=== PATIENT | male | born 1960 | race African-American/Black ===

== ENCOUNTER 2016-12-19 12:33 | Observation (INO) | payer MEDICAID, OTHER ==
[~2016-12-19] VITALS: Ht 190.5 cm; Wt 105.0 kg
[~2016-12-19 12:33] MED LIST: ALLE10TA5 PO; ASPI81TA82 PO; FISH100020 PO; GARL500C5 PO; GLIP10TA6 PO; HUMSS SQ; JANU50TA PO; LIPI10TA PO; LISI-363 PO; METF500 PO; ZANT150T2 PO
[2016-12-19 12:37] VITALS: BP 186/118; PULSE 82; RESP 20; TEMP 99; O2SAT 99
[2016-12-19 12:43] VITALS: BP 176/101; PULSE 84; RESP 21; TEMP 98.3; O2SAT 100
[2016-12-19 12:50] VITALS: BP_SYST 176; BP_SYST 186; BP_DIAS 101; BP_DIAS 118; PULSE 84; RESP 18; TEMP 98.3; O2SAT 100
[2016-12-19] MEDS ORDERED: METF1000 PO (12:58)
[2016-12-19] MEDS ORDERED: ATOR10TA15 PO (12:58)
[2016-12-19] MEDS ORDERED: LISI-515 PO (12:58)
[2016-12-19] MEDS ORDERED: LORA-520 (12:58)
[2016-12-19] MEDS ORDERED: GARL580C PO (12:58)
[2016-12-19] MEDS ORDERED: ASPI-110 PO (12:58)
[2016-12-19] MEDS ORDERED: FISH1000 PO (12:58)
[2016-12-19] MEDS ORDERED: ZANT150T2 PO (12:58)
[2016-12-19] MEDS ORDERED: TRAD5TAB PO (12:58)
[2016-12-19] MEDS ORDERED: GLIP10TA6 PO (12:58)
[2016-12-19] MEDS ORDERED: INSU1INJ13 SQ (12:58)
[2016-12-19] MEDS ORDERED: SODIUM CHLORIDE 0.9% FLUSH 10 ML FLUSH IVF PRN (13:00)
--- NOTE | 2016-12-19 13:02 | PD ---
HPI Chief Complaint: Chest Pain Time Seen by Provider: 12:53 Travel History International Travel<30 days: No Contact w/Intl Traveler<30days: No Traveled to known affect area: No History of Present Illness HPI 56yo M with PMH of HTN, DM presents to the ED with c/o chest pressure in left chest since last night. States it is intermittent, nonradiating and lasts seconds at a time. Denies any associated nausea, vomiting, diaphoresis, sob, fever, cough, abdominal pain, focal weakness or numbness. Denies any history of LA. Denies any previous chest pain or work up. Does not have a endband sizer. Took aspirin 81mg PO today. PFSH Past Medical History Hx Anticoagulant Therapy: Yes Asthma: Yes Cancer: No Cardiovascular Problems: Yes High Cholesterol: Yes Diabetes: Yes Patient Takes Glucophage: Yes Endocrine: Yes Gastrointestinal Disorders: Yes (GERD) Genitourinary: No Hepatitis: No Hiatal Hernia: No Hypertension: Yes Immune Disorder: No Musculoskeletal: No Neurologic: No Psychiatric: No Respiratory: Yes (ASTHMA RESOLVED) Thyroid Disease: No Tetanus Vaccination: Unknown Past Surgical History AICD: No Joint Replacement: No Pacemaker: No Thoracic Surgery: Yes (lipoma) Social History Alcohol Use: No Tobacco Use: No Substance Use: No Allergies-Medications (Allergen,Severity, Reaction): Coded Allergies: No Known Allergies (Verified , 12/19/16) Reported Meds & Prescriptions Reported Meds & Active Scripts Active Reported Zantac (Ranitidine HCl) 150 Mg Tab 150 Mg PO DAILY Allergy (Loratadine) 10 Mg Tab Tradjenta (Linagliptin) 5 Mg Tab 5 Mg PO DAILY Metformin (Metformin HCl) 1,000 Mg Tab 1,000 Mg PO BID With a meal Lisinopril 20 Mg Tab 20 Mg PO DAILY Glipizide 10 Mg Tab 10 Mg PO BID Take 30 minutes before a meal Fish Oil ([place]-3 Fatty Acids) 1,000 Mg Cap 1 Cap PO DAILY Garlic 580 Mg Capsule 1,000 Mg PO DAILY Atorvastatin (Atorvastatin Calcium) 10 Mg Tab 5 Mg PO HS Aspirin 81 (Aspirin) 81 Mg Tabdr 81 Mg PO DAILY Tresiba Flextouch Pen Inj (Insulin Degludec Inj) 600 unit/3 ML Pen 12 Units SQ HS Review of Systems Except as stated in HPI: all other systems reviewed are Neg Physical Exam Narrative GENERAL: 56yo M not in distress. SKIN: Focused skin assessment warm/dry. HEAD: Atraumatic. Normocephalic. CARDIOVASCULAR: Regular rate and rhythm. No murmur appreciated. RESPIRATORY: No accessory muscle use. Clear to auscultation. Breath sounds equal bilaterally. GASTROINTESTINAL: Abdomen soft, non-tender, nondistended. No rebound tenderness or guarding. MUSCULOSKELETAL: No obvious deformities. No clubbing. No cyanosis. No edema. NEUROLOGICAL: Awake and alert. No obvious cranial nerve deficits. Motor grossly within normal limits. Normal speech. PSYCHIATRIC: Appropriate mood and affect; insight and judgment normal. Data Data Last Documented VS Vital Signs Date Time Temp Pulse Resp B/P Pulse Ox O2 Delivery O2 Flow Rate FiO2 12/19/16 12:50 186/118 176/101 12/19/16 12:50 100 Room Air 12/19/16 12:50 98.3 84 18 Orders Basic Metabolic Panel (Bmp) (12/19/16 12:58) Complete Blood Count With Diff (12/19/16 12:58) Magnesium (Mg) (12/19/16 12:58) Prothrombin Time / Inr (Pt) (12/19/16 12:58) Act Partial Throm Time (Ptt) (12/19/16 12:58) Troponin I (12/19/16 12:58) Chest, Single Ap (12/19/16 12:58) Ecg Monitoring (12/19/16 12:58) Bilateral Bp Monitoring (12/19/16 12:58) Iv Access Insert/Monitor (12/19/16 12:58) Oximetry (12/19/16 12:58) Oxygen Administration (12/19/16 12:58) Sodium Chloride 0.9% Flush (Ns Flush) (12/19/16 13:00) Nitroglycerin Sl (Nitrostat Sl) (12/19/16 14:00) Aspirin Chew (Aspirin Chew) (12/19/16 14:00) Admit Order (Ed Use Only) (12/19/16 15:20) Labs Laboratory Tests Test 12/19/16 13:05 White Blood Count 6.7 TH/MM3 Red Blood Count 5.25 MIL/MM3 Hemoglobin 14.3 GM/DL Hematocrit 42.9 % Mean Corpuscular Volume 81.7 FL Mean Corpuscular Hemoglobin 27.3 PG Mean Corpuscular Hemoglobin 33.4 % Concent Red Cell Distribution Width 14.1 % Platelet Count 232 TH/MM3 Mean Platelet Volume 9.8 FL Neutrophils (%) (Auto) 63.9 % Lymphocytes (%) (Auto) 25.2 % Monocytes (%) (Auto) 7.3 % Eosinophils (%) (Auto) 2.5 % Basophils (%) (Auto) 1.1 % Neutrophils # (Auto) 4.3 TH/MM3 Lymphocytes # (Auto) 1.7 TH/MM3 Monocytes # (Auto) 0.5 TH/MM3 Eosinophils # (Auto) 0.2 TH/MM3 Basophils # (Auto) 0.1 TH/MM3 CBC Comment DIFF FINAL Differential Comment Prothrombin Time 10.4 SEC Prothromb Time International 0.9 RATIO Ratio Activated Partial 28.9 SEC Thromboplast Time Sodium Level 136 MEQ/L Potassium Level 4.2 MEQ/L Chloride Level 103 MEQ/L Carbon Dioxide Level 26.6 MEQ/L Anion Gap 6 MEQ/L Blood Urea Nitrogen 13 MG/DL Creatinine 1.16 MG/DL Estimat Glomerular Filtration 80 ML/MIN Rate Random Glucose 164 MG/DL Calcium Level 8.9 MG/DL Magnesium Level 2.2 MG/DL Troponin I LESS THAN 0.02 NG/ML MDM Medical Decision Making Medical Screen Exam Complete: Yes Emergency Medical Condition: Yes Interpretation(s) EKG: NSR 74bpm. Normal axis. No ST segment elevation or depression. Differential Diagnosis ACS vs. pneumonia vs. musculoskeletal pain vs. GERD Narrative Course 56yo M with pressure like chest pain since last night, lasting only seconds at a time. Pt was walking when he first had the pain but it is not worst with exertion. Labs reviewed, no leukocytosis. Troponin negative. Glucose mildly elevated at 164. CXR showed no acute cardiopulmonary disease. Pt took aspirin 81mg at home so gave him another 81mg PO. Sublingual nitro ordered PRN chest pain. Labs reviewed, no leukocytosis. Troponin negative. CXR showed no acute cardiopulmonary disease. Pt has never had a previous cardiac work up. Will admit to chest pain center for serial EKG and cardiac enzyme. BP is now 157/77. Pt was initially admitted to chest pain center. However, pt then states he is not able to wait and needs to go. States his chest pain had resolved. AMA: The risks of leaving against medical advice without further evaluation treatment were discussed with the patient. These risks include cardiac dysfunction, cardiac dysrhythmia, possible heart attack, possible stroke or . The patient indicated understanding of these risks and appeared to have the capacity to make this decision. Diagnosis Primary Impression: Chest pain Qualified Code: R07.9 - Chest pain, unspecified type Patient Instructions: General Instructions Departure Forms: Tests/Procedures Additional Instructions: Please follow up with your PMD or return to the ED if you change your mind. Med/Other Pt SpecificInfo: No Change to Meds Disposition: 07 AGAINST MEDICAL ADVICE Condition: Stable Gwendolyn Claire DO Dec 19, 2016 13:02
[2016-12-19 13:12] LABS: AUTOMATED NEUTROPHIL # 4.3 TH/MM3 (1.8-7.7); BASOPHIL # 0.1 TH/MM3 (0-0.2); BASOPHIL % 1.1 % (0.0-2.0); EOSINOPHIL # 0.2 TH/MM3 (0-0.4); EOSINOPHIL % 2.5 % (0.0-4.0); HEMATOCRIT 42.9 % (39.0-51.0); HEMO FLAGS DIFF FINAL; LYMPH % 25.2 % (9.0-44.0); LYMPHOCYTE # 1.7 TH/MM3 (1.0-4.8); MEAN CELL VOLUME 81.7 FL (80.0-100.0); MEAN CORPUSCULAR HEMOGLOBIN 27.3 PG (27.0-34.0); MEAN CORPUSCULAR HGB CONC 33.4 % (32.0-36.0); MONO % 7.3 % (0.0-8.0); NEUT % 63.9 % (16.0-70.0); PLATELET COUNT 232 TH/MM3 (150-450); RED BLOOD COUNT 5.25 MIL/MM3 (4.50-5.90); RED CELL DISTRIBUTION WIDTH 14.1 % (11.6-17.2); WHITE BLOOD COUNT 6.7 TH/MM3 (4.0-11.0)
[2016-12-19 13:22] LABS: APTT (PATIENT) 28.9 SEC (24.3-30.1); INTERNATIONAL NORMALIZED RATIO 0.9 RATIO; PROTHROMBIN TIME - PATIENT 10.4 SEC (9.8-11.6)
[2016-12-19 13:39] LABS: ANION GAP 6 MEQ/L (5-15); BICARBONATE 26.6 MEQ/L (21.0-32.0); BLOOD UREA NITROGEN 13 MG/DL (7-18); CHLORIDE 103 MEQ/L (98-107); GLOMERULAR FILTRATION RATE 80 ML/MIN (>89); MAGNESIUM 2.2 MG/DL (1.5-2.5); POTASSIUM 4.2 MEQ/L (3.5-5.1); SODIUM (NA) 136 MEQ/L (136-145)
--- NOTE | 2016-12-19 13:43 | RADRPT ---
EXAM DATE/TIME: 12/19/2016 13:08 [facility] COMPARISON: CHEST PA & LAT, November 28, 2014, 21:20. INDICATIONS : Short of breath. MEDICAL HISTORY : Diabetes mellitus type II. Bronchitis. Asthma. SURGICAL HISTORY : None. ENCOUNTER: Initial ACUITY: 1 day PAIN SCORE: 0/10 LOCATION: Bilateral chest FINDINGS: The lungs are clear without infiltrate, nodule, or mass. There is no appreciable pleural effusion fo r technique. Heart and mediastinum are unremarkable. CONCLUSION: No acute cardiopulmonary disease. Juan Yin MD on December 19, 2016 at 13:39 Board Certified Radiologist. This report was verified electronically.
[2016-12-19] MEDS ORDERED: NITROGLYCERIN 0.4 MG SL 25 TABS/BTL SL PRN (14:00)
[2016-12-19] MEDS ORDERED: ASPIRIN 81 MG CHEW TAB CHEW ONE (14:00)
[2016-12-19 16:44] VITALS: BP 140/70
--- NOTE | 2016-12-20 17:19 | EKG ---
Date Performed: 12/19/2016 Time Performed: 12:46:40 PTAGE: 56 years EKG: Sinus rhythm NORMAL ECG INTERPRETATION BASED ON A DEFAULT AGE OF 40 YEARS PREVIOUS TRACING : 11/28/2014 21.45 Since previous tracing, no significant change noted DOCTOR: Marcell Hubbard Interpretating Date/Time 12/20/2016 17:17:21
== END 2016-12-19 16:49 | disposition left against medical advice (07) ==
LOC: NEPE 12:33 → NEDA 15:22
PROVIDERS: ADMIT Internal Medicine Interventional Cardiology; ATTEND Internal Medicine Interventional Cardiology
DX: R07.89 Other chest pain (principal); R06.02 Shortness of breath; I10 Essential (primary) hypertension; E78.00 Pure hypercholesterolemia, unspecified; E11.9 Type 2 diabetes mellitus without complications; J45.909 Unspecified asthma, uncomplicated; K21.9 Gastro-esophageal reflux disease without esophagitis; Z79.899 Other long term (current) drug therapy; Z79.82 Long term (current) use of aspirin; Z79.84 Long term (current) use of oral hypoglycemic drugs; Z53.21 Procedure and treatment not carried out due to patient leaving prior to being seen by health care provider
CPT/HCPCS: 71010; 80048; 83735; 84484; 85025; 85610; 85730; 93005; 99285; G0378

== ENCOUNTER 2017-01-24 14:52 | Emergency (ER) | payer MEDICAID ==
[~2017-01-24] VITALS: Ht 190.5 cm; Wt 105.0 kg
[~2017-01-24 14:52] MED LIST changes: -ALLE10TA5 PO; +ASPI-110 PO; -ASPI81TA82 PO; +ATOR10TA15 PO; +FISH1000 PO; -FISH100020 PO; -GARL500C5 PO; +GARL580C PO; -HUMSS SQ; +INSU1INJ13 SQ; -JANU50TA PO; -LIPI10TA PO; -LISI-363 PO; +LISI-515 PO; +LORA-520; +METF1000 PO; -METF500 PO; +TRAD5TAB PO
[2017-01-24 14:53] VITALS: BP 176/86; PULSE 84; RESP 15; TEMP 98.4; O2SAT 98
--- NOTE | 2017-01-24 15:05 | PD ---
HPI . sore throat and ear pain x 2 weeks Chief Complaint: ENT Complaint Time Seen by Provider: 15:17 Travel History International Travel<30 days: No Contact w/Intl Traveler<30days: No Traveled to known affect area: No History of Present Illness HPI 56-year-old male here with complaints of throat pain and ear pain for 2 weeks. Patient tells me that he's had some antibiotics at home he took them without any significant improvement. He says that he is able to eat, but occasionally he'll experience pain in his throat mainly on the right side. He also reports some right sided ear pain. He denies any fever or chills. He has no other complaints. His primary care provider is Dr. Biggs. [facility] Past Medical History Hx Anticoagulant Therapy: Yes Asthma: Yes Cancer: No Cardiovascular Problems: Yes High Cholesterol: Yes Diabetes: Yes Endocrine: Yes Gastrointestinal Disorders: Yes (GERD) Genitourinary: No Hepatitis: No Hiatal Hernia: No Hypertension: Yes Immune Disorder: No Musculoskeletal: No Neurologic: No Psychiatric: No Respiratory: Yes (ASTHMA RESOLVED) Thyroid Disease: No Past Surgical History AICD: No Joint Replacement: No Pacemaker: No Thoracic Surgery: Yes (lipoma) Social History Alcohol Use: No Tobacco Use: No Substance Use: No Allergies-Medications (Allergen,Severity, Reaction): Coded Allergies: No Known Allergies (Verified , 01/24/17) Reported Meds & Prescriptions Reported Meds & Active Scripts Active Reported Zantac (Ranitidine HCl) 150 Mg Tab 150 Mg PO DAILY Tradjenta (Linagliptin) 5 Mg Tab 5 Mg PO DAILY Metformin (Metformin HCl) 1,000 Mg Tab 1,000 Mg PO BID With a meal Lisinopril 20 Mg Tab 20 Mg PO DAILY Glipizide 10 Mg Tab 10 Mg PO BID Take 30 minutes before a meal Fish Oil ([place]-3 Fatty Acids) 1,000 Mg Cap 1 Cap PO DAILY Garlic 580 Mg Capsule 1,000 Mg PO DAILY Atorvastatin (Atorvastatin Calcium) 10 Mg Tab 5 Mg PO HS Aspirin 81 (Aspirin) 81 Mg Tabdr 81 Mg PO DAILY Tresiba Flextouch Pen Inj (Insulin Degludec Inj) 600 unit/3 ML Pen 12 Units SQ HS Review of Systems General / Constitutional: No: Fever Eyes: No: Visual changes HENT: Positive: Sore Throat, Ear Discharge, No: Headaches Cardiovascular: No: Chest Pain or Discomfort Respiratory: No: Shortness of Breath Gastrointestinal: No: Abdominal Pain Genitourinary: No: Dysuria Musculoskeletal: No: Pain Skin: No Rash Neurologic: No: Weakness Psychiatric: No: Depression Endocrine: No: Polydipsia Hematologic/Lymphatic: No: Easy Bruising Physical Exam Narrative GENERAL: AAO x 3, no acute distress, Well-nourished, well-developed patient. SKIN: Warm and dry. No visible rashes or bruising. HEAD: Normocephalic and atraumatic. EYES: No scleral icterus. No injection or drainage. EOM intact, PERRLA ENT: No nasal drainage noted. Mucous membranes pink. Airway patent. No oropharynx abdomen. No posterior pharynx erythema, edema or exudates. TMs normal bilaterally. NECK: Supple, trachea midline. No JVD. No lymphadenopathy CARDIOVASCULAR: Regular rate and rhythm without murmurs, gallops, or rubs. RESPIRATORY: Breath sounds equal bilaterally. No accessory muscle use. No rhonchi or rales. GASTROINTESTINAL: Visual inspection normal EXTREMITIES: No cyanosis or edema. BACK: No obvious deformity. No CVA tenderness. NEURO: CN II-12 intact, PSYCH: AAO x 3, normal affect. Data Data Last Documented VS Vital Signs Date Time Temp Pulse Resp B/P (MAP) Pulse Ox O2 Delivery O2 Flow Rate FiO2 01/24/17 15:05 17 01/24/17 14:53 98.4 84 176/86 (010) 98 MDM Medical Decision Making Medical Screen Exam Complete: Yes Emergency Medical Condition: No Medical Record Reviewed: Yes Differential Diagnosis Pharyngitis, reflux, postnasal drip, allergic rhinitis Narrative Course A medical screening exam was performed: At the time of evaluation the presenting medical condition was determined not to be of an emergent nature. The patient was given the option of receiving additional care, but declined. Patient was given options for additional community resources from which to obtain care. The Patient Has Been advised to seek medical attention for their presenting complaint. The patient has been advised to return to the ER at any time if an emergent condition develops. On evaluation there is no gross abnormalities. Patient doesn't have any signs of infection. TMs are normal bilaterally. I believe that he may be experiencing some symptoms in his throat associated with reflux. He admits to having reflux and takes medications for this. I recommend follow-up with his primary care provider. Diagnosis Primary Impression: Encounter for medical screening examination Condition: Stable Juju Whyte Jan 24, 2017 15:05
== END 2017-01-24 15:25 | disposition left against medical advice (07) ==
LOC: NEPD 14:52
DX: H92.01 Otalgia, right ear (principal)
CPT/HCPCS: 99281